=== PATIENT | female | born 1990 | race Caucasian/White ===

== ENCOUNTER 2018-12-18 06:35 | Day surgery (SDC) | payer BC ==
[2018-12-11 14:23] LABS: Basophils % 0.6 % (0-1.3); Hematocrit 36.4 % (36.0-45.0); Lymphocytes % 25.5 % (15.3-44.8); MPV 8.3 fL (7.6-11.3); RBC Red Blood Cell Count 4.24 M/uL (3.86-4.86)
[2018-12-11 14:29] LABS: Urine Appearance CLEAR; Urine Bilirubin NEGATIVE (NEG); Urine Blood NEGATIVE (NEG); Urine Color YELLOW; Urine Glucose NEGATIVE (NEG); Urine Protein NEGATIVE (NEG); Urine Specific Gravity 1.025 (1.005-1.030); Urine Urobilinogen 0.2 mg/dL (0.2-1.0); Urine pH 6.5 (5.0-7.0)
[2018-12-11 14:37] LABS: Urine Microscopic Reflex NO UMIC
[2018-12-18] MEDS ORDERED: Ringers Lactate 1,000 ML IV ONE (06:38)
[2018-12-18] MEDS ORDERED: SCOPOLAMINE HYDROBROMIDE PATCH TD ONE (06:38)
[2018-12-18] MEDS ORDERED: NA CHLORIDE 0.9% 1,000 ML ONE (07:08)
[2018-12-18] MEDS ORDERED: FENTANYL CITR 100 MCG/2 ML ONE ×3 (07:23→09:45)
[2018-12-18] MEDS ORDERED: PROPOFOL 200 MG/20 ML VIAL IV ONE (07:23)
[2018-12-18] MEDS ORDERED: dexAMETHasone 10 MG/ML VIAL ONE (07:24)
[2018-12-18] MEDS ORDERED: ROCURONIUM 50 MG/5 ML VIAL IV ONE (07:24)
[2018-12-18] MEDS ORDERED: NS 0.9% VIAL 10 ML ONE (07:24)
[2018-12-18] MEDS ORDERED: LIDOCAINE 2% MPF 5 ML VIAL ONE (07:24)
[2018-12-18] MEDS ORDERED: MIDAZOLAM HCL 2 MG/2 ML INJ ONE (07:24)
[2018-12-18] MEDS ORDERED: ONDANSETRON 4 MG/2 ML VIAL ONE (07:25)
[2018-12-18] MEDS: BUPIVACAINE 0.25% PF 30 ML VIAL ONE ×2 (08:11→08:40)
[2018-12-18] MEDS ORDERED: Phenylephrine HCl 10 MG/ML 1 ML VIAL ONE (08:24)
[2018-12-18] MEDS ORDERED: METHYLENE BLUE 0.5% 10 ML AMP ONE (08:33)
[2018-12-18] MEDS: Ringers Lactate 1,000 ML IV ONE ×2 (08:41→08:57)
[2018-12-18] MEDS ORDERED: KETOROLAC 30 MG/ML INJ ONE ×2 (08:46→09:02)
[2018-12-18] MEDS ORDERED: DIPHENHYDRAMINE 50 MG/ML VIAL ONE (08:49)
[2018-12-18] MEDS ORDERED: EPHEDRINE SULF 50 MG/ML VIAL ONE (08:56)
[2018-12-18] MEDS ORDERED: NEOSTIGMINE 1 MG/ML -10 ML VIAL ONE (09:05)
[2018-12-18] MEDS ORDERED: GLYCOPYRROLATE 0.2 MG/ML SYR ONE (09:05)
[2018-12-18] MEDS ORDERED: HYDROCODONE/APAP 5/325 MG TAB ONE (11:33)
[2018-12-18 14:09] VITALS: BP 114/52; TEMP 97.7; O2SAT 93
--- NOTE | 2018-12-18 18:56 | OP ---
Date of Procedure: 12/18/2018 Surgeon: Gaye Chao MD Gas Blender: Raquel Erickson. Preoperative Diagnoses: Irregular heavy bleeding, dyspareunia, right complex adnexal mass. Postoperative Diagnoses: Irregular heavy bleeding; dyspareunia; small right adnexal mass, most likel y involuting cyst or a corpus luteum. Procedures Performed: Diagnostic hysteroscopy, D and C, diagnostic laparoscopy, right ovarian cystec tri with repair of the ovaries, and chromotubation. Anesthesia: General endotracheal. Estimated Blood Loss: Minimal. Specimens: Right ovarian cyst. EMC and endometrial curettings. Complications: No complications. Drains: No drains. Condition: Stable. Findings: No evidence of endometriosis in the pelvic cavity. Vulva appeared to be normal. Appendix retrocecal and long but unremarkable, no inflammation or tumor or endometriosis seen. Both tubes ap peared to be anatomically normal. Uterus first-degree retroflexed. Left ovary completely normal. R ight ovary with a follicle and in the superior medial pole of the ovary, there was a cyst that appear ed to be involuting and direct marketing representative of likely the cyst that was detected on ultrasound. This had a bluish darkish hue to it. The plan was to excise this just in case this was an endometrioma or ano ther process that could recur. Full excision was done and ovarian repair with 3-0 Monocryl was done. On chromotubation, the D and C prevented from the fluid flowing likely into the fallopian tubes. The tubes appeared to be undilated. However, it was difficult for me to fill the tubes with the blue dy e and after attempt with 40 mL of dilute methylene blue, no further attempt was made to continue its chromotubation. The patient's condition was stable. Brief History And Physical: The patient is a 28-year-old, seen on well-woman exam with irregular per iods, dyspareunia, and significant family history of ovarian cancer, breast cancer as well. She had a transvaginal ultrasound, which showed a 6.7 cm complex right adnexal mass, most likely with debris in it, possibly blood. We discussed about the findings, discussed options of observation with ultras ound followup versus removal and opted for removal. CA-125 was normal. Patient was consented for [facility] ovarian cystectomy, pelvic washings, possible oophorectomy, hysteroscopy D and C because of possi ble EMC because she had heavy irregular periods and skips. Heavy that the risk for endometrial type 1 adenocarcinoma present and therefore plan for sampling. Description Of Procedure: After informed consent was verified today, she was brought back to the OR, placed in the supine fashion on the operating table. After general anesthesia was given, she was pl aced in dorsal lithotomy position and pelvic exam was performed. No adnexal mass was palpable. Uter us was slightly retroflexed. There was fullness noted on the right side but no discrete mass. After abdomen, vulva, vagina, and perineum were prepped and draped in a sterile fashion, Choudhury was pl aced to drain the bladder and 2 Allis clamps were placed on the anterior lip of the cervix. Diagnost ic hysteroscopy was performed and the cavity appeared to be unremarkable. Endometrium thickened. No intracavitary lesions. Scope pulled out. EMC performed, the diagnostic VCare introduced. This are a was draped. A 1 cm infraumbilical incision was made after injecting the skin site with Marcaine. Then, fascia was incised and 0 Vicryl sutures were placed to tag on both sides. Peritoneum entered b luntly. S-retractors placed. The peritoneal cavity insufflated. Site of entry checked, unremarkabl e. 5 mm suprapubic and left lower quadrant placed under direct vision after injecting Marcaine. The n, survey of the pelvic cavity was conducted and findings noted as dictated above. Monopolar needle was taken and the ovarian cyst was circumscribed with the monopolar needle, then dissected away from the ovarian tissue cleanly and removed. Then, the base was cauterized with the help of bipolar and t he closure was done with the help of 3-0 Monocryl in a buried [id number] fashion. Once this was done, thorough irrigation and suction were performed. This was wrapped in Interceed. Then, chromot ubation was attempted as above and there was no blue dye seen here. The blue dye was getting into th e broad ligament, most likely because of the endometrial curettings obstructing the opening of the tu bes and then the endometrial disruption allowing the methylene blue to get into the myometrium. Once this was all done, then thorough irrigation and suction was performed and a window made in the p eritoneal cavity. The right ovarian specimen could not be pulled out through the [address] d in an EndoCatch bag, removed through the umbilical port and everything was completely visualized. All the pedicles were hemostatic. The ports were removed under direct vision, injected with Marcaine after the ports were pulled out. The umbilical port was also pulled out after desufflating the gas, injected at the fascia with the Marcaine and then closure with 0 Vicryl sutures at the fascia and pablo bcutaneous simple 3-0 Vicryl stitch, 4-0 Vicryl for closure at all incision sites. Dermabond placed, Choudhury and VCare were removed. Instrument, needle, and sponge counts done and were correct at the en d of the case. The patient tolerated the procedure well. She will follow up with me in 1 week. ALEX Voice ID: [id number] Report ID: [id number]
== END 2018-12-18 12:08 | disposition home or self-care (01) ==
LOC: OR 06:35
PROVIDERS: ATTEND Obstetrics & Gynecology
PROC: 0UDB7ZX Extraction of Endometrium, Via Natural or Artificial Opening, Diagnostic (ICD-10-PCS; 2018-12-18)
PROC: 0UJD8ZZ Inspection of Uterus and Cervix, Via Natural or Artificial Opening Endoscopic (ICD-10-PCS; 2018-12-18)
PROC: 3E1P78X Irrigation of Female Reproductive using Irrigating Substance, Via Natural or Artificial Opening, Diagnostic (ICD-10-PCS; 2018-12-18)
PROC: 0UQ04ZZ Repair Right Ovary, Percutaneous Endoscopic Approach (ICD-10-PCS; 2018-12-18)
PROC: 0UB04ZZ Excision of Right Ovary, Percutaneous Endoscopic Approach (ICD-10-PCS; principal; 2018-12-18 07:30)
DX: N92.6 Irregular menstruation, unspecified (principal); N83.201 Unspecified ovarian cyst, right side; N94.10 Unspecified dyspareunia; E66.9 Obesity, unspecified; Z87.891 Personal history of nicotine dependence; Z80.41 Family history of malignant neoplasm of ovary; Z80.3 Family history of malignant neoplasm of breast; Z83.3 Family history of diabetes mellitus
CPT/HCPCS: 85025; 36415; 86900; 86850; 81025; 86901; 88305; 81003; 58662; 58558; 58350; 58679; J2704; J2710; J1200; J2370; J2250; J3010 ×3; J1100; J7120 ×2; J7030; J2405

== ENCOUNTER 2024-04-16 02:37 | Emergency (ER) | payer BC ==
--- OUTSIDE RECORDS SUMMARY | 2024-04-16 02:39 | XMS REPORT | Continuity of Care Document ---
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
[2024-04-16] MEDS ORDERED: MORPHINE 4 MG/ML SYR ONE (03:02)
[2024-04-16] MEDS ORDERED: ONDANSETRON 4 MG/2 ML VIAL ONE (03:02)
[2024-04-16] MEDS ORDERED: NA CHLORIDE 0.9% 1,000 ML ONE (03:02)
[2024-04-16 03:15] LABS: Absolute Eosinophils 0.1 K/uL (0-0.5); Absolute Lymphocytes (CBC) 3.3 K/uL (0.7-4.9); Absolute Monocytes 0.9 K/uL (0.1-1.3); Absolute Neutrophil 12.3 K/uL (1.8-8.0); Basophils % 0.3 % (0-1.3); Eosinophils % 0.8 % (0-4.4); Hemoglobin 13.1 g/dL (12.0-15.0); Lymphocytes % 19.8 % (15.3-44.8); MCH 29.1 pg (27.0-35.0); MCHC 34.4 g/dL (32.0-36.0); MCV 84.6 fL (80-100); MPV 7.8 fL (7.6-11.3); Monocytes % 5.5 % (3.3-12.3); Neutrophils % 73.6 % (41.7-73.7); Nucleated Red Blood Cells % 0.1 % (0-0); Platelets 343 thou/uL (152-406); RBC Red Blood Cell Count 4.49 M/uL (3.86-4.86); Red Cell Distribution Width 12.6 % (12.1-15.2)
[2024-04-16 03:29] LABS: Albumin 3.2 g/dL (3.4-5.0); Albumin/Globulin Ratio 0.8 (1.1-1.8); Anion Gap 6.6 mEq/L (5.0-15.0); Bilirubin Total 0.4 mg/dL (0.2-1.0); Globulin 3.8 g/dL (2.3-3.5); Potassium 3.6 mEq/L (3.5-5.1)
[2024-04-16 04:28] LABS: Specific Gravity 1.024 (1.005-1.030)
[2024-04-16 04:29] LABS: Specific Gravity 1.024 (1.005-1.030); Sqamous Epithelial <5 /HPF (None Seen); Urine Bacteria None Seen /HPF (<20); Urine Bilirubin NEGATIVE (Negative); Urine Blood Negative (Negative); Urine Clarity Clear (Clear); Urine Color Yellow (Yellow); Urine Culture Reflex Order NOT NEEDED; Urine Glucose NEGATIVE (Negative); Urine Ketones NEGATIVE (Negative); Urine Microscopic Reflex YN ORDER UMIC; Urine Mucus Slight /HPF (None Seen); Urine Nitrite NEGATIVE (Negative); Urine Protein NEGATIVE (Negative); Urine RBC None Seen /HPF (None Seen); Urine Urobilinogen Normal (Normal); Urine WBC <5 /HPF (<5)
--- NOTE | 2024-04-16 06:19 | ER ---
Nurse's Notes [facility] Name: Antonio Cortes Age: 34 yrs Sex: Female : 1990 Arrival Date: 04/16/2024 Time: 02:37 Bed 5 Private MD: Diagnosis: Abdominal pain, Generalized Presentation: 04/16 02:58 Chief complaint: Patient states: LUQ PAIN (SHARP) THAT BEGAN AT 1AM, NAUSEA, COUGH. br2 Coronavirus screen: Client denies travel out of the [place] in the last 14 days. Ebola Screen: Patient denies exposure to infectious person. Initial Sepsis Screen: Does the patient meet any 2 criteria? No. Patient's initial sepsis screen is negative. Does the patient have a suspected source of infection? No. Patient's initial sepsis screen is negative. Risk Assessment: Do you want to hurt yourself or someone else? Patient reports no desire to harm self or others. Onset of symptoms was April 15, 2024 at 23:00. 02:58 Method Of Arrival: Ambulatory br2 02:58 Acuity: CARLOS MANUEL 3 br2 Historical: - Allergies: 03:01 No Known Allergies; br2 - Immunization history:: Adult Immunizations up to date. - Infectious Disease History:: Denies. - Social history:: Smoking status: Patient/guardian denies using tobacco, Patient uses alcohol, occasionally. Screenin:14 [facility] ED Fall Risk Assessment (Adult) History of falling in the last 3 months, lg3 including since admission No falls in past 3 months (0 pts) Confusion or Disorientation No (0 pts) Intoxicated or Sedated No (0 pts) Impaired Gait No (0 pts) Mobility Assist Device Used No (0 pt) Altered Elimination No (0 pt) Score/Fall Risk Level 0 - 2 = Low Risk Oriented to surroundings, Maintained a safe environment, Educated pt \T\ family on fall prevention, incl call for assistance when getting out of bed, Assessed \T\ reinforced patient's understanding of fall precautions. Abuse screen: Denies threats or abuse. Denies injuries from another. Nutritional screening: No deficits noted. Tuberculosis screening: No symptoms or risk factors identified. Assessment: 03:14 General: Appears in no apparent distress. uncomfortable, Behavior is calm, cooperative. lg3 Pain: Complains of pain in epigastric area, right upper quadrant and left upper quadrant Pain radiates to back. Neuro: No deficits noted. Maldonado Agitation-Sedation Scale (RASS): 0 - Alert and Calm Level of Consciousness is awake, alert, obeys commands, Oriented to person, place, time, situation. Cardiovascular: No deficits noted. Denies chest pain, shortness of breath, Capillary refill < 3 seconds Clubbing of nail beds is absent JVD is absent Patient's skin is warm and dry. Respiratory: No deficits noted. Reports cough that is persistent Airway is patent Respiratory effort is even, unlabored, Respiratory pattern is regular, symmetrical. GI: Abdomen is round non-distended, Bowel sounds present X 4 quads. Abd is soft X 4 quads Abdomen is tender to palpation in right upper quadrant and left upper quadrant Reports upper abdominal pain, epigastric pain, nausea. : No signs and/or symptoms were reported regarding the genitourinary system. EENT: No deficits noted. No signs and/or symptoms were reported regarding the EENT system. Derm: No deficits noted. No signs and/or symptoms reported regarding the dermatologic system. Skin is intact, is healthy with good turgor, Skin is dry, Skin is normal, Skin temperature is warm. Musculoskeletal: No deficits noted. No signs and/or symptoms reported regarding the musculoskeletal system. Circulation, motion, and sensation intact. Range of motion: intact in all extremities. 04:47 Reassessment: Patient appears in no apparent distress at this time. No changes from lg3 previously documented assessment. Patient and/or family updated on plan of care and expected duration. Pain level reassessed. Patient is alert, oriented x 3, equal unlabored respirations, skin warm/dry/pink. Patient states feeling better. Patient states symptoms have improved. 06:33 Reassessment: Patient appears in no apparent distress at this time. No changes from lg3 previously documented assessment. Patient and/or family updated on plan of care and expected duration. Pain level reassessed. Patient is alert, oriented x 3, equal unlabored respirations, skin warm/dry/pink. Patient states feeling better. Patient states symptoms have improved. Vital Signs: 02:58 BP 128 / 69; Pulse 78; Resp 18; Temp 97.1(TE); Pulse Ox 100% ; Weight 89.81 kg; Height br2 5 ft. 3 in. ; Pain 8/10; 04:47 BP 112 / 60; Pulse 77; Resp 16 S; Pulse Ox 98% on R/A; lg3 06:33 BP 114 / 62; Pulse 71; Resp 17 S; Pulse Ox 99% on R/A; lg3 02:58 Body Mass Index 35.07 (89.81 kg, 160.02 cm) br2 02:58 Pain Scale: Adult br2 ED Course: 02:41 Patient arrived in ED. gm2 02:51 Mata Pinzon MD is Attending Physician. ec2 03:01 Triage completed. br2 03:07 Inserted saline lock: 20 gauge in right antecubital area, using aseptic technique. oe Blood collected. Flushed with 10 mL NS. 03:08 CBC with Diff Sent. oe 03:08 CMP Sent. oe 03:08 Lipase Sent. oe 03:14 Bertha Briones RN is Primary Nurse. lg3 03:14 Patient has correct armband on for positive identification. Placed in gown. Bed in low lg3 position. Call light in reach. Side rails up X 1. Client placed on continuous cardiac and pulse oximetry monitoring. NIBP monitoring applied. Door closed. Noise minimized. Warm blanket given. Pillow given. Family accompanied patient. 03:35 Radiology exam delayed due to test not completed at this time. ls3 04:42 CT Abd/Pelvis - IV Contrast Only In Process Unspecified. EDMS 07:04 No provider procedures requiring assistance completed. IV discontinued, intact, lg3 bleeding controlled, No redness/swelling at site. Pressure dressing applied. Administered Medications: 03:17 Drug: Ondansetron IVP 4 mg IVP once; over 2 minutes Route: IVP; Site: right antecubital;lg3 04:48 Follow up: Response: No adverse reaction; Marked relief of symptoms lg3 03:17 Drug: NS 0.9% IV 1000 ml IV at 1 bolus Per protocol; to be given as a bolus over 60 lg3 minutes Route: IV; Rate: 1 bolus; Site: right antecubital; 04:48 Follow up: Response: No adverse reaction; IV Status: Completed infusion; IV Intake: lg3 1000ml 03:17 Drug: morphine IVP or IV 4 mg IVP once over 4 mins Route: IVP; Infused Over: 4 mins; lg3 Site: right antecubital; 04:48 Follow up: Response: No adverse reaction; Marked relief of symptoms lg3 03:48 CANCELLED (Physician Discretion): ibuprofensuspension 10 mg/kg PO once ec2 Medication: 03:14 VIS not applicable for this client. lg3 Intake: 04:48 IV: 1000ml; Total: 1000ml. lg3 Outcome: 06:19 Discharge ordered by . ec2 07:04 Discharged to home ambulatory, lg3 07:04 Condition: stable 07:04 Discharge instructions given to patient, Instructed on discharge instructions, follow up and referral plans. Demonstrated understanding of instructions, follow-up care, 07:04 Patient left the ED. lg3 Signatures: Dispatcher [employer] EDMS Rajesh Avery Lynzie ls3 Bertha Briones, RN RN lg3 Mata Pinzon MD MD ec2 Elizabeth Webber gm2 Graciela Kumar RN RN br2
--- NOTE | 2024-04-16 06:19 | EDPHYS ---
Physician Documentation [facility] Name: Antonio Cortes Age: 34 yrs Sex: Female : 1990 Arrival Date: 04/16/2024 Time: 02:37 Bed 5 Private MD: ED Physician Mata Pinzon HPI: 04/16 03:31 This 34 yrs old Female presents to ER via Ambulatory with complaints of ec2 Abdominal Pain, CLAMMY. 03:31 Patient arrives today for evaluation of upper abdominal pain. Patient reports worsening ec2 upper abdominal pain since this evening. Reports some associated nausea and vomiting. Denies diarrhea symptoms, denies urinary complaints. Denies any cough and cold symptoms.. Historical: - Allergies: 03:01 No Known Allergies; br2 - Immunization history:: Adult Immunizations up to date. - Infectious Disease History:: Denies. - Social history:: Smoking status: Patient/guardian denies using tobacco, Patient uses alcohol, occasionally. ROS: 03:31 Constitutional: as per hpi ec2 Exam: 03:31 Constitutional: GEN: NAD Head: atraumatic Eyes: EOMI Ears: External ears are ec2 normal. CV: regular rate LUNGS: no respiratory distress ABD: non-distended, soft, generally tender, not guarding, not rigid SKIN: no evidence of rashes MSK: no evidence of trauma Vital Signs: 02:58 BP 128 / 69; Pulse 78; Resp 18; Temp 97.1(TE); Pulse Ox 100% ; Weight 89.81 kg; Height br2 5 ft. 3 in. ; Pain 8/10; 04:47 BP 112 / 60; Pulse 77; Resp 16 S; Pulse Ox 98% on R/A; lg3 06:33 BP 114 / 62; Pulse 71; Resp 17 S; Pulse Ox 99% on R/A; lg3 02:58 Body Mass Index 35.07 (89.81 kg, 160.02 cm) br2 02:58 Pain Scale: Adult br2 MDM: 02:56 Medical Screening Exam initiated ec2 03:31 Data reviewed: vital signs, nurses notes. ED course: Patient arrives today for ec2 evaluation of upper abdominal pain. Examination is revealing for nontoxic hemodynamically stable individual. Lab work shows leukocytosis. Will obtain urine studies as well as CT imaging. Differential diagnosis considered include processes such as pancreatitis, cholecystitis, gastritis. 06:17 ED course: CT abdomen pelvis shows no acute intra-abdominal process.. ec2 06:19 ED course: On reassessment patient with marked improvement in symptoms. Will discharge ec2 home. Return precautions given.. 02 02:56 Order name: CBC with Diff; Complete Time: 03:30 ec2 04/16 02:56 Order name: CMP; Complete Time: 03:30 ec2 04/16 02:56 Order name: Lipase; Complete Time: 03:30 ec2 04/16 02:56 Order name: Test, Urine; Complete Time: 04:50 ec2 04/16 02:56 Order name: Urinalysis w/ reflexes; Complete Time: 04:50 ec2 04/16 03:31 Order name: CT Abd/Pelvis - IV Contrast Only ec2 04/16 02:56 Order name: IV Saline Lock; Complete Time: 03:08 ec2 04/16 02:56 Order name: Labs collected and sent; Complete Time: 03:08 ec2 Administered Medications: 03:17 Drug: Ondansetron IVP 4 mg IVP once; over 2 minutes Route: IVP; Site: right antecubital;lg3 04:48 Follow up: Response: No adverse reaction; Marked relief of symptoms lg3 03:17 Drug: NS 0.9% IV 1000 ml IV at 1 bolus Per protocol; to be given as a bolus over 60 lg3 minutes Route: IV; Rate: 1 bolus; Site: right antecubital; 04:48 Follow up: Response: No adverse reaction; IV Status: Completed infusion; IV Intake: lg3 1000ml 03:17 Drug: morphine IVP or IV 4 mg IVP once over 4 mins Route: IVP; Infused Over: 4 mins; lg3 Site: right antecubital; 04:48 Follow up: Response: No adverse reaction; Marked relief of symptoms lg3 03:48 CANCELLED (Physician Discretion): ibuprofensuspension 10 mg/kg PO once ec2 Disposition Summary: 04/16/24 06:19 Discharge Ordered Notes: Location: Home ec2 Condition: Stable ec2 Diagnosis - Abdominal pain, Generalized ec2 Followup: ec2 - With: Private Physician - When: - Reason: Re-evaluation by your physician Discharge Instructions: - Discharge Summary Sheet ec2 - Abdominal Pain, Adult ec2 - Abdominal Pain, Adult, [id number] ec2 Forms: - Medication Reconciliation Form ec2 - Antibiotic Education ec2 - Prescription Opioid Use ec2 - Patient Portal Instructions ec2 - Leadership Thank You Letter ec2 Signatures: Dispatcher [employer] Bertha Harrell, RN RN lg3 Mata Pinzon MD MD ec2 Graciela Kumar RN RN br2 Corrections: (The following items were deleted from the chart) 02:57 02:56 CBC+H.LAB.BRZ ordered. EDMS EDMS 02:57 02:56 COMPREHENSIVE METABOLIC PANEL+C.LAB.BRZ ordered. EDMS EDMS 02:57 02:56 LIPASE+C.LAB.BRZ ordered. EDMS EDMS 02:57 02:56 Test, Urine+UC.LAB.BRZ ordered. EDMS EDMS 02:57 02:56 Urinalysis+U.LAB.BRZ ordered. EDMS EDMS 03:47 03:47 TEST, SERUM+SC.LAB.BRZ ordered. EDMS EDMS 03:48 03:48 Ibuprofen PO Suspension 10 mg/kg PO once ordered. ec2 ec2
--- NOTE | 2024-04-16 06:46 | RAD REPORT ---
EXAMINATION: CTABDOMEN AND PELVIS WITH CONTRAST CLINICAL INDICATION: Female, 34 years old.ABD PAIN TECHNIQUE: CT abdomen and pelvis was performed, after the administration of IV contrast, as per [facility] protocol. Axial, sagittal and coronal reconstructions were obtained. One or more of the following dose reduction techn iques were used: Automated exposure control, adjustment of the mA and/or kV according to patient size, and/or iterative reconstr uction. Unless otherwise specified, incidental findings do not require dedicated imaging follow-up. [id number]. COMPARISON: No prior exam. FINDINGS: LOWER CHEST: No acute process identified.No significant pericardial effusion. UPPER GI: No significant abnormality. LIVER: No significant focal abnormality. GALLBLADDER/BILE DUCTS: No biliary ductal dilatation. PANCREAS: No mass, ductal dilation, or joselo-pancreatic fluid. SPLEEN: Unremarkable. ADRENALS: No adrenal masses. KIDNEYS AND URETERS: No hydronephrosis.No suspicious renal mass. ABDOMINAL AORTA AND OTHER VESSELS: Normal caliber aorta and IVC. PERITONEUM: Small volume of pelvic free fluid which is likely physiologic. LYMPH NODES: No pathologic lymphadenopathy. ABDOMINAL WALL: Small fat containing umbilical hernia. SMALL BOWEL/COLON: Small bowel has normal course and caliber. No colonic wall thickening or pericolon ic inflammatory changes.Normal appendix. URINARYBLADDER: Underdistended but grossly unremarkable. REPRODUCTIVE ORGANS: No pathologic process. Fallopian tube occluders. MUSCULOSKELETAL: No acute or suspicious osseous abnormality. ADDITIONAL FINDINGS: None. IMPRESSION: No acute or significant abnormalities seen in the abdomen or pelvis. Normal appendix. Pelvic free flu id is likely physiologic. Electronically signed by: Chente Alvarez MD 04/16/2024 06:13 AM [facility] Due to temporary technical issues with the PACS/[employer] reporting system, reports are being jaden d by the in-house radiologist without review as a courtesy to ensure prompt reporting the interpreting radiologist is fully responsible for the content of the report. Transcribed Date/Time: 04/16/2024 6:46 AM
[2024-04-16 09:18] VITALS: TEMP 97.1
[2024-04-16 09:20] VITALS: BP 114/62; O2SAT 99
== END 2024-04-16 07:04 | disposition home or self-care (01) ==
LOC: ER 02:37
DX: R10.84 Generalized abdominal pain (principal)
CPT/HCPCS: 85025; 81001; 36415; 81025; 83690; 80053; 74177; Q9967; J2405; J7030